=== PATIENT | male | born 1950 ===

== ENCOUNTER 2019-01-31 07:26 | Outpatient (CLI) | payer OTHER ==
[~2019-01-31] VITALS: Ht 182.9 cm; Wt 112.0 kg
== END 2019-01-31 07:45 | disposition home or self-care (01) ==
LOC: OFIC 805 07:26
DX: H90.3 Sensorineural hearing loss, bilateral (principal); H70.13 Chronic mastoiditis, bilateral; H71.12 Cholesteatoma of tympanum, left ear; H93.12 Tinnitus, left ear; G44.89 Other headache syndrome; J31.0 Chronic rhinitis

== ENCOUNTER 2019-02-07 08:10 | Outpatient (CLI) | payer OTHER ==
[~2019-02-07] VITALS: Ht 182.9 cm; Wt 112.0 kg
== END 2019-02-07 08:30 | disposition home or self-care (01) ==
LOC: OFIC 805 08:10
DX: H70.13 Chronic mastoiditis, bilateral (principal); H71.12 Cholesteatoma of tympanum, left ear; H93.12 Tinnitus, left ear; G44.89 Other headache syndrome; J31.0 Chronic rhinitis; H90.6 Mixed conductive and sensorineural hearing loss, bilateral

== ENCOUNTER 2019-02-10 10:16 | Outpatient (CLI) | payer OTHER | END 2019-02-10 10:18 | disposition home or self-care (01) | LOC: TOM 10:16 | DX: H70.13 Chronic mastoiditis, bilateral (principal); H69.83 Other specified disorders of Eustachian tube, bilateral; H90.6 Mixed conductive and sensorineural hearing loss, bilateral; H71.12 Cholesteatoma of tympanum, left ear ==

== ENCOUNTER 2019-02-14 08:46 | Outpatient (CLI) | payer OTHER ==
[~2019-02-14] VITALS: Ht 182.9 cm; Wt 112.0 kg
== END 2019-02-14 09:05 | disposition home or self-care (01) ==
LOC: OFIC 805 08:46
DX: H70.13 Chronic mastoiditis, bilateral (principal); H93.12 Tinnitus, left ear; G44.89 Other headache syndrome; J31.0 Chronic rhinitis; H90.6 Mixed conductive and sensorineural hearing loss, bilateral